=== PATIENT | male | born 1980 | race Caucasian/White ===

== ENCOUNTER 2017-08-06 21:14 | Emergency (ER) | payer BC, OTHER ==
[~2017-08-06] VITALS: Ht 185.4 cm; Wt 166.5 kg
[2017-08-06 21:18] VITALS: TEMP 36.8; Ht 185.4 cm; Wt 166.5 kg
[2017-08-06] MEDS ORDERED: XYLOCAINE 1%/SOD BICARB 20 ML VIAL INFIL ONE (21:45)
[2017-08-06 22:32] VITALS: BP 123/78; PULSE 82; O2SAT 98
--- NOTE | 2017-08-07 21:24 | EMERGENCY ROOM VISIT NOTE ---
ED Visit Note First contact with patient: 21:40 CHIEF COMPLAINT: Arm laceration HISTORY OF PRESENT ILLNESS: This 37-year-old male patient presents to the emergency department after they cut the left arm on a piece of metal at a convenience store about one hour ago. There is no significant bleeding and there is no significant pain. The patient denies any other injuries. The patient rates the pain as dull and 2/10. The patient's tetanus shot is reportedly up to date. REVIEW OF SYSTEMS: A 6 system review of systems was completed with positives and pertinent negatives listed in the HPI. ALLERGIES: No known allergies MEDICATIONS: No chronic medications PMH: Otherwise healthy SOCIAL HISTORY: Lives locally PHYSICAL EXAM: Vital Signs: Reviewed Nurse's notes, vital signs stable. GENERAL : White male, in no acute distress, well-developed, well-nourished. Skin: There is a linear 7.0 cm long laceration on the lateral aspect of the left lower arm. The edges gape apart retraction. There is no foreign material in the wound and it looks clean. There is no active bleeding. No deep structures such as tendons, bones, or significant blood vessels are seen in the base of the wound. Strength 5/5 of the left upper extremity. Capillary refill less than two seconds. Normal sensation to light and sharp touch. EMERGENCY DEPARTMENT COURSE: I examined the patient. Verbal consent was obtained to perform the procedure. Using sterile technique the wound was cleansed with Betadine. The area was sterilely draped. 6 ml of 1% buffered lidocaine was used to anesthetize the laceration on the arm. Once the patient was anesthetized, the wound was copiously irrigated under pressure with sterile saline. The wound was explored and was as described above. The laceration was repaired using 10 simple interrupted 4-0 nylon sutures with the wound edges being well approximated. The patient tolerated the procedure well. Hemostasis was achieved. The area was cleaned with sterile saline and dressed with bacitracin ointment and bandage. The patient was discharged home in good condition with instructions as below. Problem List Medical Problems: (1) Seasonal allergies Status: Chronic Current/Historical Medications No Active Prescriptions or Reported Meds Allergies Coded Allergies: No Known Allergies (Verified , 04/10/16) Vital Signs Date Time Temp Pulse Resp B/P (MAP) Pulse Ox O2 Delivery O2 Flow Rate FiO2 08/06/17 22:32 82 123/78 98 08/06/17 21:18 36.8 106 16 167/96 99 Room Air Departure Information Impression Primary Impression: Laceration of arm Dispostion Home / Self-Care Condition GOOD Prescriptions No Active Prescriptions or Reported Meds Forms HOME CARE DOCUMENTATION FORM, IMPORTANT VISIT INFORMATION Patient Instructions My [facility], ED Laceration All, ED Scar Tips to Minimize Additional Instructions Keep wound clean and dry. Do not allow any crusting or dried blood to accumulate on sutures. If this occurs, use a mild soap/water on a Q-tip to clean the wound. Do not use Peroxide to clean the wound as this can delay healing Use an antibiotic ointment like Bacitracin for 3-4 days, then let wound dry. You may bathe and shower as normal, but DO NOT SOAK the wound. Suture removal in about 10-12 days with your Family Doctor or in the ER. Return sooner for any signs of infection, increasing redness, swelling, or drainage.
== END 2017-08-06 22:32 | disposition home or self-care (01) ==
LOC: C.EDB 21:15 → C.EDD 22:32
DX: S41.112A Laceration without foreign body of left upper arm, initial encounter (principal); W26.8XXA Contact with other sharp object(s), not elsewhere classified, initial encounter